=== PATIENT | male | born 2000 | race Caucasian/White ===

== ENCOUNTER 2023-01-29 12:50 | Emergency (ER) | payer BC, MEDICAID, SELFPAY ==
--- NOTE | 2023-01-29 12:58 | ED_ITS ---
HPI - Allergic Reaction General: Chief complaint: Skin/Abscess/Foreign Body Stated complaint: rash Time Seen by Provider: 01/29/23 12:56 History of Present Illness: HPI narrative: 23-year-old male presents to the emergency department with complaints of pain a nd itching as he was mowing in the field when he came in contact with a large amount of poison fmei. He states he previously approximately 1 week ago had a similar incident where he was prescribed corticosteroids and he states he has been taking that since then and has done much better but once he reexposed himself today he became concerned as he started having significant blistering to his chest and arms and difficulty with his lips. Review of Systems General: Reports: 10 or more systems reviewed and unremarkable except in HPI and below Skin/Breast: Reports: rash, pruritus and erythema Physical Exam Const: COMMON NORMALS: no acute distress, average body habitus, patient oriented x3 and alert HENMT: COMMON NORMALS: normocephalic, atraumatic, Normal nasal mucous membranes and turbinates present and moist oral mucous membranes HEAD & SCALP: normocephalic and atraumatic NOSE: Normal nasal mucous membranes and turbinates present Eye: COMMON NORMALS: Equal, round and reactive pupils present and EOMs intact bilaterally PUPIL: Yes Equal, round and reactive pupils present Neck/C-Spine: COMMON NORMALS: full ROM and supple Resp: COMMON NORMALS: normal respiratory effort, No retractions and clear to auscultation bilaterally AUSCULTATION: clear to auscultation bilaterally Cardio: COMMON NORMALS: regular rate, regular rhythm, S1 normal heart sound present, S2 normal heart sound present and Peripheral pulses 2+ throughout RATE: regular rate RHYTHM: regular rhythm HEART SOUNDS: S1 normal heart sound present and S2 normal heart sound present PERIPHERAL PULSES: Peripheral pulses 2+ throughout GI: COMMON NORMALS: Normal to inspection, nondistended, normoactive bowel sounds present, Soft to palpation and non-tender PALPATION: Yes Soft to palpation Extremity: COMMON NORMALS: normal to inspection, full ROM and capillary refill normal Neuro: COMMON NORMALS: patient oriented x3 and moves all extremities SENSORIUM/ORIENTATION: Yes alert Psych: COMMON NORMALS: mental status grossly normal, Normal thought process present and cooperative THOUGHT PROCESS: Normal thought process present Skin: RASHES: rashes noted (Vesicular area of irritation to the left and right dorsal aspect of the ruiz) Course Vital Signs: Vital signs: Vital Signs Temperature 98.1 F 01/29/23 13:01 Pulse Rate 89 01/29/23 14:09 Respiratory Rate 14 01/29/23 13:01 Blood Pressure 149/87 01/29/23 14:09 Pulse Oximetry 98 01/29/23 14:09 Oxygen Delivery Me thod Room Air 01/29/23 13:01 MDM - Allergic Reaction Medical Decision Making Physical exam completed and documented I will provide him intramuscular injection of corticosteroids as well as hydroxyzine. Patient was provided anticipatory guidance as well as discharge instructions recommend follow-up with his PCP. Patient was discharged home in stable condition and in no acute distress. Medical Records I reviewed the patient's medical records. Lab Data I reviewed the patient's lab results. Discharge Plan Discharge Patient Disposition: Home Clinical Impression: Contact dermatitis Condition: Stable Prescriptions: New Zyrtec 10 mg capsule 10 mg PO DAILY Qty: 30 0RF Discharge Orders: Discharge ED (Routine); Ordered 01/29/23 Ordered By: Jose Manuel Willett Patient Instructions: Opioid Safety, Pain Management Coding Level of Care Code ED Set Up [employer] for Naila Carrasco
[2023-01-29 13:01] VITALS: BP 157/94; PULSE 91; RESP 14; TEMP 36.7; O2SAT 96; BMI 37.6
[2023-01-29] MEDS: methylPREDNISolone sod succ 125 MG in water for injection-sterile 2 ML 24 MG IM (13:28)
[2023-01-29 14:09] VITALS: BP 149/87; PULSE 89; O2SAT 98
--- NOTE | 2023-02-03 13:12 | DCPLANNER ---
nurse practitioner manager called patient due to no primary care physician - patient declines at this time.
== END 2023-01-29 14:14 | disposition home or self-care (01) ==
PROVIDERS: Emergency Provider Internal Medicine
DX: L25.9 Unspecified contact dermatitis, unspecified cause (principal)
CPT/HCPCS: 96372; 99284; J2930

== ENCOUNTER → 2024-01-05 16:54 | Outpatient (BNVA) | payer BC, MEDICAID, SELFPAY | PROVIDERS: Visit Provider Nurse Practitioner | DX: M25.511 Pain in right shoulder (principal) | CPT/HCPCS: 73030 ==

== ENCOUNTER 2024-01-05 17:16 | Outpatient (CLI) | payer BC, MEDICAID, SELFPAY ==
--- NOTE | 2024-01-05 17:28 | XRR_ITS ---
PROCEDURE INFORMATION: Exam: XR Right Clavicle, Complete Exam date and time: 01/05/2024 5:34 PM Age: 23 years old Clinical indication: Shoulder; Right; Patient HX: RT clavicle pain near SC joint; No known injury TECHNIQUE: Imaging protocol: Radiologic exam of the right clavicle. Complete exam. Views: Any number of views. COMPARISON: CR XR shoulder RT min 2V* [id number] 01/05/2024 5:04 PM FINDINGS: Bones/joints: Normal. Soft tissues: Normal. XR/[place] [id number] IMPRESSION: No acute findings.
== END 2024-01-05 17:17 | disposition home or self-care (01) ==
LOC: RAD 17:18
PROVIDERS: Visit Provider Nurse Practitioner
DX: S49.91XA Unspecified injury of right shoulder and upper arm, initial encounter (principal)
CPT/HCPCS: 73000